=== PATIENT | male | born 1955 | race African-American/Black ===

== ENCOUNTER 2017-03-07 20:09 | Emergency (ER) | payer SELFPAY ==
[2017-03-07 20:17] VITALS: BP 166/98
--- NOTE | 2017-03-07 22:56 | ER Document Report ---
HPI - HPI Pain Level: 3 Notes: Patient is a 61-year-old male who presents the ED complaining of a left index finger injury and laceration that occurred prior to arrival. Patient states that he was switching out a sawblade when he put this which on cut his finger. Patient states that the cut does involve his distal half of the finger nail. Patient states he still is unable to move his finger without any difficulties and has no numbness or tingling. Patient states that his been many years since his last tetanus injection. The pain does not radiate and is described as an ache. Patient denies any drug allergies. His past medical history significant for hypertension and hernia repair. No other concerns or complaints at this time. Denies any headache, fever, chest pain, palpitations, syncope, cough, shortness of breath, wheeze, dyspnea, abdominal pain, nausea/vomiting/diarrhea, numbness/tingling, muscle paralysis/weakness. - ROS Notes: REVIEW OF SYSTEMS: CONSTITUTIONAL : Denies fever, chills, or sweats. Denies recent illness. EENT: Denies eye, ear, throat, or mouth pain or symptoms. Denies nasal or sinus congestion or discharge. Denies throat, tongue, or mouth swelling or difficulty swallowing. CARDIOVASCULAR: Denies chest pain. Denies palpitations or racing or irregular heart beat. Denies ankle edema. RESPIRATORY: Denies cough, cold, or chest congestion. Denies shortness of breath, difficulty breathing, or wheezing. GASTROINTESTINAL: Denies abdominal pain or distention. Denies nausea, vomiting , or diarrhea. Denies blood in vomitus, stools, or per rectum. Denies black, tarry stools. Denies constipation. GENITOURINARY: Denies difficulty urinating, painful urination, burning, frequency, blood in urine, or discharge. MUSCULOSKELETAL: see hpi SKIN: see hpi NEUROLOGICAL: Denies confusion or altered mental status. Denies passing out or loss of consciousness. Denies dizziness or lightheadedness. Denies headache. Denies weakness or paralysis or loss of use of either side. Denies problems with gait or speech. Denies sensory loss, numbness, or tingling. ALL OTHER SYSTEMS REVIEWED AND NEGATIVE. Dictation was performed using [employer] voice recognition software - DERM Skin Color: Normal Past Medical History - Social History Smoking Status: Smoker,Current Status Unk Family History: Reviewed & Not Pertinent Patient has suicidal ideation: No Patient has homicidal ideation: No - Past Medical History Cardiac Medical History: Reports: Hx Hypertension Denies: Hx Coronary Artery Disease, Hx Heart Attack Pulmonary Medical History: Denies: Hx Asthma, Hx Bronchitis, Hx COPD, Hx Pneumonia Neurological Medical History: Denies: Hx Cerebrovascular Accident, Hx Seizures Renal/ Medical History: Denies: Hx Peritoneal Dialysis GI Medical History: Denies: Hx Hepatitis, Hx Hiatal Hernia, Hx Ulcer Musculoskeltal Medical History: Reports Hx Arthritis Infectious Medical History: Denies: Hx Hepatitis Past Surgical History: Denies: Hx Open Heart Surgery - Immunizations Hx Diphtheria, Pertussis, Tetanus Vaccination: Yes Vertical Provider Document - CONSTITUTIONAL Agree With Documented VS: Yes Notes: PHYSICAL EXAMINATION: GENERAL: Well-appearing, well-nourished and in no acute distress. LUNGS: Breath sounds clear to auscultation bilaterally and equal. No wheezes rales or rhonchi. HEART: Regular rate and rhythm without murmurs, rubs, gallops. Musculoskeletal: Lt index: FROM to passive/active. Strength 5+/5. + irregular 0.5cm avulsion/laceration to the distal medial 1/2 of the nail and distal medial finger tip. N/V intact distal. No tendon compromise. No purulent discharge or abscess. Extremities: No cyanosis, clubbing, or edema b/l. Peripheral pulses 2+. Capillary refill less than 3 seconds. NEUROLOGICAL: Normal sensory, motor exams PSYCH: Normal mood, normal affect. SKIN: see MSK exam. - INFECTION CONTROL TRAVEL OUTSIDE OF THE [place] IN LAST 30 DAYS: No - RESPIRATORY O2 Sat by Pulse Oximetry: 97 Course - Re-evaluation Re-evalutation: 03/08/17 01:03 Patient is an afebrile, well-hydrated, 61-year-old male who presents the ED with an avulsion laceration to his right index finger. The avulsion injury does incorporate the distal half of the medial side of the nail. Vitals are stable. PE otherwise unremarkable. Patient is neurovascularly intact distal. tissue was debrided. There is no area that is able to be sutured in the nail bed is intact. wound dressing and splint placed. Wound instructions reviewed with patient. I will cover him with Keflex as prophylactic. Reviewed with patient that he will need a recheck with his PCM this week, and consider consult with orthopedics for recheck as well. Return to ED with any worsening/ concerning symptoms otherwise reviewed discharge. Patient is in agreement. - Vital Signs Vital signs: Temp Pulse Resp BP Pulse Ox 99.2 F 90 18 166/98 H 97 03/07/17 20:14 03/07/17 20:14 03/07/17 20:14 03/07/17 20:14 03/07/17 20:14 Procedures - Laceration/Wound Repair Left Finger Time completed: 00:45 Wound length (cm): 1 Wound's Depth, Shape: Superficial, Irregular, Nail-avulsed - distal medial half Laceration pre-procedure: Sterile PPE donned, Sterile drapes applied, Shur- Clens applied Anesthetic type: 1% Lidocaine Volume Anesthetic (mLs): 8 Wound explored: Clean, No foreign body removed Irrigated w/ Saline (mLs): 60 Wound Debrided: Minimal Wound Repaired With: Other - none Number of Sutures: 0 Layer Closure?: No Post-procedure wound care: Sterile dressing applied, Splint applied Post-procedure NV exam normal: Yes Complications: No Discharge - Discharge Clinical Impression: Finger laceration Qualifiers: Encounter type: initial encounter Finger: index finger Damage to nail status: with damage Foreign body presence: without foreign body Laterality: left Qualified Code(s): S61.311A - Laceration without foreign body of left index finger with damage to nail, initial encounter Condition: Stable Disposition: HOME, SELF-CARE Instructions: Antibiotic Ointment Protection ([facility]), Laceration Care ([facility]), Prophylactic Antibiotic ([facility]), Soap Cleansing ([facility]), Tetanus Immunization Given ([facility]) Additional Instructions: Do not shower or bathe for 24 hours. After 24 hours you may shower but no submersion of the wound under water. Keep the original dressing on the wound for 24 hours unless the drainage soaks through. Change the dressing daily thereafter. You may leave the wound open to the air once there is no more discharge. Return to the ED and/or your PCM in 2-3 days for a recheck. Monitor for any signs of worsening pain or redness, purulent drainage, streaks, and/or fever. Return to the ED if noticing any of the above symptoms or as needed. Take medications as directed. Call Orthopedics for a recheck this week. Return to the ED with any worsening symptoms and/or development of fever, headache, chest pain, palpitations, syncope, shortness of breath, trouble breathing, abdominal pain, n/v/d, blood in stool/urine, muscle weakness/ paralysis, numbness/tingling, or other worsening symptoms that are concerning to you. Prescriptions: Cephalexin Monohydrate [Keflex 500 mg Capsule] 500 mg PO BID #10 capsule Forms: Elevated Blood Pressure Referrals: [facility] [Provider Group] - Follow up as needed
--- NOTE | 2017-03-07 22:57 | RADIOLOGY REPORT (SQ) ---
EXAM DESCRIPTION: FINGER LEFT COMPLETED DATE/TIME: 03/07/2017 10:47 pm REASON FOR STUDY: index finger laceration/trauma, distal COMPARISON: None. NUMBER OF VIEWS: Three views. TECHNIQUE: AP, lateral, and oblique images acquired of the left second finger. LIMITATIONS: None. FINDINGS: MINERALIZATION: Normal. BONES: There is slight irregularity of the tuft of the 2nd digit. No evidence of an acute fracture. SOFT TISSUES: There is a soft tissue injury there is radiopaque material most likely related to a kaitlynn ssing. No soft tissue foreign bodies. OTHER: No other significant finding. IMPRESSION: Soft tissue injury. No acute fracture. COMMENT: SITE OF TRAUMA/COMPLAINT MARKED/STAMP COMPLETED: No TECHNICAL DOCUMENTATION: JOB ID: [id number] [employer]- All Rights Reserved
[2017-03-07] MEDS ORDERED: DIPH/PERTUSS(ACELL)/TETANUS VAC/PF 0.5 ML SYR (>=10YO) IM ONE (22:58)
[2017-03-07] MEDS ORDERED: MORPHINE SULFATE IR 15 MG TABLET PO ONE (23:37)
[2017-03-07] MEDS ORDERED: ACETAMINOPHEN 325 MG TABLET PO ONE (23:42)
[2017-03-08] MEDS ORDERED: LIDOCAINE 1% INJ-PF (10 MG/ML) 30 ML SDV INJ ONE (00:17)
== END 2017-03-08 01:15 | disposition home or self-care (01) ==
LOC: ER 20:09
PROC: 0HQGXZZ Repair Left Hand Skin, External Approach (ICD-10-PCS; principal; 2017-03-07)
DX: S61.311A Laceration without foreign body of left index finger with damage to nail, initial encounter (principal); W27.8XXA Contact with other nonpowered hand tool, initial encounter; Y93.89 Activity, other specified; Y99.0 Civilian activity done for income or pay; I10 Essential (primary) hypertension
CPT/HCPCS: 99283; 90471; 73140; 90715; 12001; J3490